=== PATIENT | female | born 1950 | race Caucasian/White ===

== ENCOUNTER 2018-12-18 08:34 | Inpatient (IN) ==
[2018-12-18] MEDS ORDERED: Chlorhexidine 4% Topical 120 APPLIC/120 ML Bottle TOPICAL SCH (09:30)
[2018-12-18] MEDS ORDERED: Dexamethasone PF Inj 10 MG/ML Vial ONE (09:36)
[2018-12-18] MEDS ORDERED: Sodium Chlor 0.9% Inj 500 ML IV.CONT ONE (09:45)
[2018-12-18] MEDS ORDERED: Metoprolol Tartrate 25 MG Tablet PO ONE (09:45)
[2018-12-18] MEDS ORDERED: Chlorhexidine Gluconate 2% 1 Pack (2 Cloths) TOPICAL ONE (09:45)
[2018-12-18] MEDS ORDERED: Sodium Chlor 0.9% Inj 73.07 ML, Ropivacaine 0.5% PF Inj 24.63 ML, Ketorolac Inj 30 MG, ... P-ARTICULR SCH ×5 (10:00)
[2018-12-18] MEDS ORDERED: Vancomycin Inj 1,000 MG in Sodium Chlor 0.9% Inj 250 ML IV.SIG SCH (10:00)
[2018-12-18] MEDS ORDERED: TRANEXAMIC ACID IV.SIG SCH (10:00)
[2018-12-18] MEDS ORDERED: SODIUM CHLOR 0.9% IV.SIG SCH (10:00)
[2018-12-18] MEDS ORDERED: Tranexamic Acid Inj 3,000 MG in Sodium Chlor 0.9% Inj 100 ML P-ARTICULR SCH (10:00)
[2018-12-18] MEDS ORDERED: Clindamycin Inj 900 MG/6 ML Vial ONE (10:08)
[2018-12-18] MEDS ORDERED: fentaNYL Citrate Inj 100 MCG/2 ML Ampul ONE ×2 (10:15→14:04)
[2018-12-18] MEDS ORDERED: Zolpidem Tartrate 5 MG Tablet PO PRN (10:18)
[2018-12-18] MEDS ORDERED: Post-op Orders (for Pharmacy) OTHER STA (10:18)
[2018-12-18] MEDS ORDERED: HYDROmorphone PF Inj 1 MG/ML Ampul IV.PUSH PRN (10:18)
[2018-12-18] MEDS ORDERED: Bisacodyl 10 MG Supp RECTAL PRN (10:18)
[2018-12-18] MEDS ORDERED: ceFAZolin 2 GM Premix Inj 2 GM/50 ML PIGGYBACK IV.SIG SCH (11:00)
[2018-12-18] MEDS ORDERED: Clindamycin 900 mg/NS Premix 900 MG/50 ML PIGGYBACK IV.SIG SCH (11:00)
[2018-12-18] MEDS ORDERED: Glycopyrrolate Inj 1 MG/5 ML Syringe IV.PUSH ONE (11:28)
[2018-12-18] MEDS ORDERED: Phenylephrine/NS 1000 MCG/10ML Syringe IV.PUSH ONE (11:28)
[2018-12-18] MEDS ORDERED: Neostigmine Inj 5 MG/5 ML Syringe IV.PUSH ONE (11:28)
[2018-12-18] MEDS ORDERED: Lidocaine PF 1% Inj 5 ML Syringe OTHER ONE (11:28)
--- NOTE | 2018-12-18 13:44 | P.OP ---
Procedure: PREOPERATIVE DIAGNOSIS: Right knee osteoarthritis. POSTOPERATIVE DIAGNOSIS: Right knee osteoarthritis. PROCEDURE PERFORMED: Right total knee arthroplasty. SURGEON: Dr. Larry Hernandez M.D. PRE ASSEMBLY WIRER: PINO Faith. ANESTHESIA: General with adductor canal femoral nerve block ESTIMATED BLOOD LOSS: 100 mL. COMPLICATIONS: None. IMPLANTS USED: Liliana size 5 cemented posterior stabilized femur [] [place] size 4 cemented tibia baseplate [] polyethylene insert [] size 19 patella [] size 32 Tourniquet time 42 minutes at 250 mmHg Justification: The patient presents to the undersigned at [facility] with chief complaints of severe right knee pain. The pain is severe progressive and interferes with activities of daily living. The patient has failed greater than 3 months of nonoperative conservative treatment to include nonsteroidal anti-inflammatory medications, analgesic medications, physical therapy, cortisone injection, home exercise program, activity modification, ambulatory assistive aids, and weight loss. X-rays of the right knee reveal severe end-stage osteoarthritis with joint space narrowing, subchondral sclerosis, subchondral cysts, osteophyte formation, deformity with subluxation. The patient was counseled as to the risks, benefits, alternatives to a total knee arthroplasty. The risks were discussed which include but are not limited to, anesthesia, bleeding, infection, damage to nerves and blood vessels, continued pain, stiffness, failure of implants, blood clots, pulmonary embolism , and even . The patient's pain is severe and favors benefits over risk. The patient does wish to proceed with surgery as outlined above. Procedure in detail: Written consent has been obtained from the patient. The patient was identified and taken to the operating room. The patient was placed supine on the operating room table. General anesthesia was administered to the patient as well as an adductor canal femoral nerve block. The patient was administered preoperative IV antibiotic. A well-padded tourniquet was placed in the right thigh. The right lower extremity was prepped and draped using isopropyl alcohol , Hibiclens solution, and ChloraPrep solution. After a timeout was performed an Esmarch bandage was used to exsanguinate the right lower extremity. The tourniquet was inflated to 250 mmHg. A longitudinal incision was made over the anterior aspect of the right knee. A medial parapatellar arthrotomy was performed. The patella was everted. A patellar resection guide was used to assist with patellar resection. The patella drill guide was then placed to allow for 3 drill holes within the patella. The patella trial fit well. Attention was then turned to the femur where a intramedullary guide shakira was placed. The distal femoral guide was set to remove 10 mm of distal femur 5 degrees off the anatomic valgus axis alignment. An oscillating saw was used to perform the distal femoral cut. Attention was then turned to the tibia where extramedullary tibia guide was set to remove 6 mm off the lowest portion of the lateral tibial plateau. Significant valgus deformity and a dished out lateral tibial plateau with bone deficiency. The tibial guide was pinned in place and the tibial cut was performed. A 9 mm spacer block showed full extension. Attention was turned back to the femur with the AP sizing block used to assist with appropriate measurement and placement of the 3 degree external rotation AP cutting guide. The anterior, posterior and chamfer cuts were then performed. The PCL box guide was pinned in place and the PCL was boxed out with an oscillating saw. The medial and lateral meniscus remnants were removed as well as bone and soft tissue debris from the posterior portion of the knee. A tibia baseplate was then pinned in place and the tibia was drilled and punched. Trial components were evaluated and final components were then cemented in place. With the final components implanted the knee could achieve full extension to 0 degrees and flexion to 140, with no evidence of tibial liftoff. The testing of varus valgus balance appeared appropriate and symmetric with good stability. The patella was noted to track centrally. The tourniquet was deflated Bovie cautery was then used for hemostasis. The knee was then thoroughly irrigated with sterile saline pulse lavage antibiotic impregnated solution. The arthrotomy incision was closed with #1 Vicryl suture. The subcutaneous layer closed with 2-0 Vicryl suture. The skin incision was then closed with Dermabond. Sterile dressings were applied. The patient tolerated the procedure well with no intraoperative complications noted. Larry Farley physician assistant pastry chef certified was present during the entire procedure to include patient positioning and the procedure itself. The medical necessity of a physician assistant pastry chef was indicated in this case due to the complexity of the procedure itself. He assisted with appropriate manipulation of the leg and also retraction of the muscle, tendon, bone and neurovascular structures. He assisted with preparation of bone and also implantation of the prosthetic replacement. There was a manufacturing production technician within the room that was focused on handling of instruments but was not available to assist with the actual surgery itself. Surgeon: Larry Godoy MD
[2018-12-18] MEDS ORDERED: *morphine SULFATE 10 MG/ML PERIprocedure ONLY ONE ×2 (14:16→16:37)
--- NOTE | 2018-12-18 15:09 | XR ---
EXAM DATE: 12/18/2018 3:06 PM EST AGE/SEX: 67 years / Female INDICATIONS: Post op right knee. CLINICAL DATA: This is the patient's subsequent encounter. Patient reports that signs and symptoms h ave been present for 1 day and indicates a pain score of Nonresponsive. MEDICAL/SURGICAL HISTORY: Non-responsive. . right knee replaced COMPARISON: POI, XR KNEE COMPLETE, RIGHT, 08/08/2018. . FINDINGS: Status post placement of a knee prosthesis. There is good position and alignment of the prosthesis wi th the bony structures. Postsurgical changes are demonstrated. The bony structures are grossly intact . CONCLUSION: Good position and alignment on this postoperative study. Electronically signed by: Terence Mirza MD Board Certified Radiologist 12/18/2018 3:08 PM EST
[2018-12-18] MEDS: Clindamycin 900 mg/NS Premix 900 MG/50 ML PIGGYBACK IV.SIG SCH (19:00)
[2018-12-18] MEDS: Senna/Docusate Sodium 8.6/50 MG Tablet PO SCH (22:45)
[2018-12-18] MEDS: Multivitamin/Minerals Therapeutic Tablet PO SCH (22:46)
[2018-12-19] MEDS: Clindamycin 900 mg/NS Premix 900 MG/50 ML PIGGYBACK IV.SIG SCH ×2 (00:23→05:15)
[2018-12-19 06:37] LABS: Hematocrit 32.3 % (35.0-46.0); Hemoglobin 10.9 gm/dL (11.6-15.3)
--- NOTE | 2018-12-19 08:57 | P.PNOP ---
Subjective Interval history: doing well. Pain controlled. Physical Exam Vital signs: Vital Signs 12/18/18 09:42 12/18/18 10:04 12/18/18 14:00 Temperature 98.7 F 98.2 F Pulse Rate 110 H 79 104 H Respiratory Rate 20 Blood Pressure 137/71 131/60 Pulse Oximetry 98 99 95 12/18/18 14:15 12/18/18 14:30 12/18/18 14:45 Temperature Pulse Rate 90 88 82 Respiratory Rate Blood Pressure 133/63 121/55 L 100/55 L Pulse Oximetry 96 96 94 L 12/18/18 15:00 12/18/18 16:00 12/18/18 17:00 Temperature 97.3 F L Pulse Rate 84 80 87 Respiratory Rate 14 14 Blood Pressure 110/54 L 108/54 L 110/55 L Pulse Oximetry 94 L 97 97 12/18/18 19:00 12/18/18 19:15 12/18/18 19:25 Temperature 97.8 F 97.8 F Pulse Rate 87 77 Respiratory Rate 14 18 Blood Pressure 128/61 121/58 L Pulse Oximetry 95 93 L 96 12/19/18 01:00 12/19/18 01:45 12/19/18 05:05 Temperature 97.5 F L 97.7 F Pulse Rate 80 79 Respiratory Rate 17 18 18 Blood Pressure 110/55 L 108/55 L Pulse Oximetry 97 96 Intake & Output 12/18/18 12/19/18 12/19/18 18:59 06:59 18:59 Intake Total 1412.06 / 1412.06 760 / 760 Output Total 100 / 100 Balance 1312.06 / 1312.06 760 / 760 Weight 80.4 kg 80.2 kg Intake: IV 1362.06 / 1362.06 100 / 100 LR 1000 mL Inj 1,000 ML @ 30 1000 / 1000 mls/hr IV.CONT .Q24H ONE Rx#: [id number] Cleocin 900 mg/NS Premix 900 mg 100 / 100 In 50 ml @ 100 mls/hr IV.SIG Q6H MP Rx#:[id number] Cyklokapron Inj 1,206 MG In NS 112.06 / 112.06 Inj 100 ML @ 200 mls/hr IV.SIG ONCE MP Rx#:[id number] Vancomycin Inj 1,000 MG In NS 250 / 250 Inj 250 ML @ 250 mls/hr IV.SIG RAIL TECHNICIAN MP Rx#:[id number] Oral 660 / 660 Anesthesia Amount 50 / 50 Output: Estimated Blood Loss 100 / 100 Other: # Voids 3 # Bowel Movements 0 Weight On Admission 80.4 kg Narrative: in bed, nad dressing c/d/i neg homans nvi Results - Labs CBC & Chem 7: 12/19/18 06:09 Laboratory Results - last 24 hr 12/18/18 12/19/18 09:30 06:09 Hgb 10.9 L Hct 32.3 L Blood Type O Positive Antibody Screen Negative - Imaging Impressions Knee X-Ray 12/18/18 10:18 CONCLUSION: Good position and alignment on this postoperative study. Assessment and Plan - Ortho Post Op Day # 1 - Assessment and Plan s/p R TKA wbat maintain dressing asa 81 d/c planning home with [facility] and pt - cleared today if does well in PT f/up dr. gonzales 2 weeks
--- NOTE | 2018-12-19 08:58 | P.DCO ---
- Physical Therapy Physical Therapy: Gait training, Safety evaluation, Transfer training, bed to chair Knee: Total knee, Protocol: Right, Full weight bearing Right Lower Extremity Weight Bearing: Weight bearing as tolerated - Nursing RN days per week: 1 Nursing: Dressing changes - Case Management Consult Case Management Consult-Home Health: Yes - Certification Need for Home Health services: I have seen patient Darby Holm on 12/19/18. My clinical findings support the need for the requested home health care services because: Need for Home Health Services: Limited ability to care for self, High risk of falls Homebound Certification: I certify that my clinical findings support that this patient is homebound because: Homebound Certification: Post-op weakness, Unsteady gait/balance
[2018-12-19] MEDS: Senna/Docusate Sodium 8.6/50 MG Tablet PO SCH (09:47)
[2018-12-19] MEDS: Multivitamin/Minerals Therapeutic Tablet PO SCH (09:48)
[2018-12-19 09:55] VITALS: RESP 20
[2018-12-19 14:19] VITALS: BP 125/58; PULSE 80; TEMP 97.2; O2SAT 98
--- NOTE | 2018-12-20 15:18 | MD ---
cc: Larry Godoy MD DATE OF DISCHARGE: 12/19/2018 ADMITTING DIAGNOSIS: Severe degenerative osteoarthritis of right knee. DISCHARGE DIAGNOSIS: Severe degenerative osteoarthritis of right knee. HISTORY OF PRESENT ILLNESS: This patient is a 67-year-old female who has been a longstanding patient of Dr[facility]. Currently, she is being treated for severe and progressive right knee pain which is limiting her activities of daily living. The patient states she has severe aching sensation with weightbearing and no alleviating factors at this point in time, although she has tried medications, assistive devices, physical therapy, home exercise program and multiple corticosteroid injections without relief of symptoms. She does have x-ray evidence of severe degenerative changes in the right knee joint. While in the office, the patient was counseled on her diagnosis and treatment options. Risks, benefits, indications, discussed. The patient did elect to proceed with surgical intervention to include right . Date of surgery 12/18/2018, right total knee arthroplasty. Postop after surgery, the patient was admitted to [facility] where she received appropriate medical management, pain control, DVT prophylaxis, as well as physical therapy. DISCHARGE: Once being discharged from the hospital, the patient has been cleared to go home where she will receive home health care and home physical therapy. She is in stable condition. She may weight bear as tolerated. She has been instructed on wound care management. She has been written prescriptions for pain control and DVT prophylaxis. She has also been provided a followup appointment in approximately 2 weeks from her date of surgery The patient has asked appropriate questions, which have been answered. The patient has been discharged. Dictated by SABRA Faith MD YOBANY Mckeon/renaldo/kaushik , 01:24 PM , 01:31 PM
== END 2018-12-19 14:37 | disposition home health service (06) | DRG 470 ==
LOC: HSDI 08:34 → N06 19:21
PROVIDERS: ADMIT Orthopaedic Surgery Sports Medicine; ATTEND Orthopaedic Surgery Sports Medicine
CPT/HCPCS: 73560; 85014; 85018; 86850; 86900; 86901; 94150; 97110; 97116; 97150; 97163; 97167; C1776; J0131; J0171; J0735; J1100; J1580; J1885; J2250; J2270; J2370; J2405; J2704; J2710; J2795; J3010; J3370; J7050; J7120; J8501; L1830